=== PATIENT | female | born 1960 | race Caucasian/White ===

== ENCOUNTER 2017-08-28 18:45 | Emergency (ER) | payer OTHER | END 2017-08-28 20:41 | disposition home or self-care (01) | DX: C79.51 Secondary malignant neoplasm of bone (principal); C50.919 Malignant neoplasm of unspecified site of unspecified female breast; Z85.3 Personal history of malignant neoplasm of breast; Z88.5 Allergy status to narcotic agent; Z90.12 Acquired absence of left breast and nipple; Z60.2 Problems related to living alone ==